=== PATIENT | male | born 1985 | race Caucasian/White ===

== ENCOUNTER 2017-06-15 15:25 | Emergency (ER) | payer OTHER ==
[~2017-06-15] VITALS: Ht 170.2 cm; Wt 65.8 kg
[2017-06-15 18:48] VITALS: BP 136/91
--- NOTE | 2017-06-15 18:48 | NUR ---
PT WAS EVALUATED BY DR COLES. PT WAS D/C TO HOME. D/C INSTRUCTIONS GIVEN TO THE PT.
== END 2017-06-15 18:52 | disposition home or self-care (01) ==
LOC: ER 15:28
DX: J45.909 Unspecified asthma, uncomplicated (principal); Z88.0 Allergy status to penicillin; Z88.1 Allergy status to other antibiotic agents
CPT/HCPCS: 36415; 86403; 87070; 87400; 99284; A4663